=== PATIENT | female | born 1940 | race Caucasian/White ===

== ENCOUNTER 2021-03-13 12:14 | Outpatient (CLI) | payer MEDICARE, MEDICAID ==
[2021-03-13 12:33] LABS: Bilirubin Small (Negative); Blood, Urine Negative (Negative); Clarity Clear (Clear); Glucose, Urine (Dipstick) Negative (Negative); Hemoglobin 12.9 g/dL (12.0-16.0); Ketone, Urine Trace mg/dL (Negative); Leukocyte Negative (Negative); Mean Corpuscular HGB CONC 31.9 g/dL (32.0-36.0); Mean Corpuscular Hemoglobin 33.8 pg (27.0-31.0); Mean Platelet Volume 5.8 fL (7.4-10.4); Nitrite Negative (Negative); Platelet Count 218 thou/uL (130-400); Protein, Urine (Dipstick) Negative (Neg-Trace); RBC Distribution Width 12.8 % (11.5-14.5); Specific Gravity, Urine 1.025 (1.005-1.030); White Blood Cell (WBC) Count 10.4 thou/uL (4.8-10.8); pH, Urine 5.5 (5.0-9.0)
[2021-03-13 12:36] LABS: Urine Culture Reflex No No
[2021-03-13 12:43] LABS: Bacteria/HPF Rare-Few HPF (None Seen); RBC/HPF None Seen HPF (0-3); Squamous Epithelial 0-3 HPF (0-3); WBC/HPF 0-3 HPF (0-3)
[2021-03-13 12:46] LABS: ALT (SGPT) 23 U/L (8-55); AST (SGOT) 29 U/L (5-34); Albumin 3.5 g/dL (3.4-4.8); Alkaline Phosphatase 33 U/L (40-110); Anion Gap 17 mmol/L (10-20); BUN (Urea Nitrogen) 30 mg/dL (9.8-20.1); Bilirubin, Total 0.7 mg/dL (0.2-1.2); Calc. Creatinine Clearance 0 mL/min (70-130); Calcium 8.4 mg/dL (7.8-10.44); Carbon Dioxide 21 mmol/L (23-31); Chloride 106 mmol/L (98-107); Globulin 2.4 g/dL (2.4-3.5); Glucose 211 mg/dL (83-110); Potassium 4.8 mmol/L (3.5-5.1); Protein, Total 5.9 g/dL (5.8-8.1); Sodium 139 mmol/L (136-145)
== END 2021-03-13 12:15 | disposition home or self-care (01) ==
LOC: BURMANOR 12:14
PROVIDERS: ATTEND Family Medicine
DX: N39.0 Urinary tract infection, site not specified (principal); I10 Essential (primary) hypertension; G30.9 Alzheimer's disease, unspecified
CPT/HCPCS: 80053; 81001; 85027

== ENCOUNTER 2021-12-10 00:40 | Emergency (ER) | payer MEDICARE, MEDICAID ==
[2021-12-10 02:20] LABS: #Basophils 0.1 thou/uL (0.0-0.2); #Eosinphils 0.3 thou/uL (0.0-0.7); #Lymphocytes 4.5 thou/uL (1.20-3.40); #Monocytes 1.1 thou/uL (0.11-0.59); #Neutrophils 7.9 thou/uL (1.40-6.50); %Basophils 0.8 % (0.0-1.0); %Eosinophils 2.1 % (0.0-10.0); %Lymphocytes 32.5 % (21.0-51.0); %Monocytes 8.1 % (0.0-10.0); %Neutrophils 56.5 % (42.0-75.0); Hemoglobin 14.5 g/dL (12.0-16.0); Mean Corpuscular HGB CONC 33.5 g/dL (32.0-36.0); Mean Corpuscular Hemoglobin 35.3 pg (27.0-31.0); Mean Platelet Volume 6.8 fL (7.4-10.4); Platelet Count 217 thou/uL (130-400); RBC Distribution Width 13.3 % (11.5-14.5); Red Blood Cell (RBC) Count 4.11 mill/uL (4.20-5.40)
[2021-12-10 02:26] LABS: ALT (SGPT) 20 U/L (8-55); AST (SGOT) 15 U/L (5-34); Albumin 3.7 g/dL (3.4-4.8); Alkaline Phosphatase 37 U/L (40-110); Anion Gap 16 mmol/L (10-20); BUN (Urea Nitrogen) 38 mg/dL (9.8-20.1); Bilirubin, Total 0.6 mg/dL (0.2-1.2); Calc. Creatinine Clearance 0 mL/min (70-130); Carbon Dioxide 26 mmol/L (23-31); Chloride 105 mmol/L (98-107); Globulin 3.2 g/dL (2.4-3.5); Glucose 135 mg/dL (83-110); Potassium 4.4 mmol/L (3.5-5.1); Protein, Total 6.9 g/dL (5.8-8.1); Sodium 143 mmol/L (136-145)
[2021-12-10 02:50] LABS: MDiff Complete? YES; Macrocytosis SLIGHT = 6-15 cells (100X) (0-5/hpf); Platelet Morphology Comment Appears Adequate
== END 2021-12-10 03:25 ==
LOC: BURERS 00:40
DX: J22 Unspecified acute lower respiratory infection (principal); E03.9 Hypothyroidism, unspecified; E78.5 Hyperlipidemia, unspecified; I10 Essential (primary) hypertension; M06.9 Rheumatoid arthritis, unspecified; Z79.899 Other long term (current) drug therapy
CPT/HCPCS: 36415; 71045; 71250; 80053; 83880; 84484; 85025; 93005; J7620

== ENCOUNTER 2021-12-11 16:26 | Outpatient (CLI) | payer MEDICARE, MEDICAID | END 2021-12-11 16:27 | disposition home or self-care (01) | LOC: BURMANOR 16:26 | PROVIDERS: ATTEND Nurse Practitioner Family | DX: J09.X2 Influenza due to identified novel influenza A virus with other respiratory manifestations (principal) | CPT/HCPCS: 87804 ==

== ENCOUNTER 2022-07-17 11:32 | Outpatient (CLI) | payer MEDICARE, OTHER | END 2022-07-17 11:33 | disposition home or self-care (01) | LOC: BURRAD 11:32 | PROVIDERS: ATTEND Registered Nurse Community Health | DX: M54.6 Pain in thoracic spine (principal); M62.81 Muscle weakness (generalized); Z91.81 History of falling; M47.814 Spondylosis without myelopathy or radiculopathy, thoracic region; Z20.822 Contact with and (suspected) exposure to COVID-19 | CPT/HCPCS: 72070; 87804; U0003; U0005 ==

== ENCOUNTER 2022-07-18 10:09 | Outpatient (CLI) | payer MEDICARE, OTHER ==
[2022-07-18 10:55] LABS: Bilirubin Negative (Negative); Blood, Urine Negative (Negative); Clarity Slightly Cloudy (Clear); Glucose, Urine (Dipstick) Negative (Negative); Ketone, Urine Negative (Negative); Leukocyte Negative (Negative); Nitrite Negative (Negative); Protein, Urine (Dipstick) Negative (Neg-Trace); Urobilinogen 0.2 mg/dL (Less than 2); pH, Urine 6.5 (5.0-9.0)
== END 2022-07-18 10:10 | disposition home or self-care (01) ==
LOC: BURMANOR 10:09
PROVIDERS: ATTEND Registered Nurse Community Health
DX: R41.82 Altered mental status, unspecified (principal)
CPT/HCPCS: 81003; 87086

== ENCOUNTER 2022-10-29 16:37 | Outpatient (CLI) | payer MEDICARE, OTHER | END 2022-10-29 16:38 | disposition home or self-care (01) | LOC: BURRAD 16:37 | PROVIDERS: ATTEND Preventive Medicine Undersea and Hyperbaric Medicine | DX: M79.671 Pain in right foot (principal); E11.9 Type 2 diabetes mellitus without complications ==